=== PATIENT | male | born 1985 | race African-American/Black ===

== ENCOUNTER 2023-03-26 20:31 | Observation (INO) | payer BC, OTHER ==
[2023-03-26] MEDS ORDERED: SODIUM CHLORIDE 0.9% 500 ML INFUS.BAG IV ONE (23:07)
[2023-03-27] LABS: HEMATOCRIT 48.9 % (35.4-49); HEMOGLOBIN 16.9 GM/dL (11.7-16.9); MCH 27.9 pg (25.7-33.7); MCHC 34.5 g/dl (32.0-35.9); MEAN CELL VOLUME 80.7 fl (80-96); PLATELET COUNT 292 10^3/uL (134-434); RBC 6.06 M/mm3 (4.00-5.60); RDW 14.5 % (11.9-15.9); WHITE BLOOD COUNT 17.6 K/mm3 (4.0-10.0)
[2023-03-27 00:15] LABS: POTASSIUM 5.1 mmol/L (3.5-5.1)
[2023-03-27 00:17] LABS: CALCIUM 9.3 mg/dL (8.5-10.1)
[2023-03-27 00:18] LABS: ALBUMIN 4.6 g/dl (3.4-5.0); MAGNESIUM 1.9 mg/dL (1.8-2.4)
[2023-03-27 00:21] LABS: CREATININE 1.4 mg/dL (0.55-1.3)
[2023-03-27 00:23] LABS: TOT PROT 8.7 g/dl (6.4-8.2)
[2023-03-27] MEDS ORDERED: SODIUM CHLORIDE 0.9% 500 ML INFUS.BAG IV ONE ×2 (00:33→01:43)
[2023-03-27] MEDS ORDERED: ONDANSETRON 4 MG/2 ML VIAL IVPUSH ONE (00:42)
[2023-03-27] MEDS ORDERED: ONDANSETRON 4 MG/2 ML VIAL ONE ×2 (00:46→05:52)
[2023-03-27 01:31] LABS: ANISOCYTOSIS 2+; MACROCYTOSIS 0; OVALOCYTE 2+
[2023-03-27] MEDS ORDERED: ACETAMINOPHEN 1000 MG/100 ML BAG IVPB ONE (01:43)
[2023-03-27 01:47] LABS: URINE APPEARANCE CLEAR; URINE BILIRUBIN NEGATIVE (NEGATIVE); URINE COLOR YELLOW; URINE GLUCOSE (UA) NEGATIVE (NEGATIVE); URINE KETONE 1+ (NEGATIVE); URINE LEUK ESTERASE NEGATIVE (NEGATIVE); URINE NITRITE NEGATIVE (NEGATIVE); URINE PROTEIN TRACE (NEGATIVE); URINE UROBILINOGEN 0.2 mg/dL (0.2-1.0)
[2023-03-27] MEDS ORDERED: ACETAMINOPHEN INJECTION 100 ML IVPB ONE (02:47)
[2023-03-27] MEDS ORDERED: ACETAMINOPHEN 1000 MG/100 ML BAG IVPB PRN (04:08)
[2023-03-27] MEDS: SODIUM CHLORIDE 1,000 ML IV SCH ×2 (05:49→21:30)
[2023-03-27] MEDS: ONDANSETRON 4 MG/2 ML VIAL IVPB PRN ×2 (05:50→12:19)
[2023-03-27 07:32] LABS: BASO % 0.6 % (0-2.0); EOS % 0.6 % (0-4.5); HEMATOCRIT 44.6 % (35.4-49); HEMOGLOBIN 14.6 GM/dL (11.7-16.9); LYMPH % 7.4 % (8-40); MCH 27.2 pg (25.7-33.7); MCHC 32.8 g/dl (32.0-35.9); MEAN CELL VOLUME 82.9 fl (80-96); MONO % 7.1 % (3.8-10.2); NEUT % 84.3 % (42.8-82.8); PLATELET COUNT 248 10^3/uL (134-434); RBC 5.37 M/mm3 (4.00-5.60); RDW 14.8 % (11.9-15.9); WHITE BLOOD COUNT 11.5 K/mm3 (4.0-10.0)
[2023-03-27] MEDS: HEPARIN NA (PORCINE) 5,000 UNITS/ML 1ML VIAL SQ SCH ×3 (07:54→21:29)
[2023-03-27 08:26] LABS: POTASSIUM 4.1 mmol/L (3.5-5.1)
[2023-03-27] MEDS ORDERED: ONDANSETRON 4 MG TABLET PO ONE (08:36)
[2023-03-27] MEDS ORDERED: ONDANSETRON *ODT* 4 MG TABLET ONE (08:39)
[2023-03-27 08:51] LABS: BLOOD UREA NITROGEN 18.8 mg/dL (7-18); CREATININE 1.1 mg/dL (0.55-1.3); PHOSPHOROUS 3.6 mg/dL (2.5-4.9)
[2023-03-27 08:52] LABS: BILIRUBIN,TOTAL 0.9 mg/dL (0.2-1)
[2023-03-27 08:54] LABS: ALBUMIN 3.5 g/dl (3.4-5.0); CALCIUM 8.2 mg/dL (8.5-10.1); MAGNESIUM 1.8 mg/dL (1.8-2.4)
[2023-03-27 13:40] LABS: COCAINE, UR NEGATIVE (NEGATIVE); METHADONE, UR NEGATIVE (NEGATIVE); OPIATES, URI NEGATIVE (NEGATIVE); PHENCYCLIDINE,URINE NEGATIVE (NEGATIVE)
[2023-03-27 14:11] LABS: URINE AMPHETAMINES NEGATIVE (NEGATIVE); URINE BARBITURATES NEGATIVE (NEGATIVE); URINE BENZODIAZEPINES NEGATIVE (NEGATIVE)
[2023-03-27] MEDS: PROCHLORPERAZINE INJECTION 10 MG/2 ML VIAL IVPB PRN ×2 (16:29→21:29)
[2023-03-28] MEDS: HEPARIN NA (PORCINE) 5,000 UNITS/ML 1ML VIAL SQ SCH ×3 (05:23→21:23)
[2023-03-28] MEDS: SODIUM CHLORIDE 1,000 ML IV SCH (05:24)
[2023-03-28] MEDS ORDERED: ACETAMINOPHEN 1000 MG/100 ML BAG IVPB ONE (05:37)
[2023-03-28] MEDS: ACETAMINOPHEN 325 MG TABLET (FP) PO PRN (11:20)
[2023-03-28] MEDS: LACTATED RINGERS SOLUTION 1,000 ML/1,000 ML INFUS.BAG IV SCH ×2 (13:43→23:47)
[2023-03-28 15:17] VITALS: BMI 33.0
[2023-03-29] MEDS: HEPARIN NA (PORCINE) 5,000 UNITS/ML 1ML VIAL SQ SCH ×2 (05:30→13:47)
[2023-03-29] MEDS: SODIUM CHLORIDE 1,000 ML IV SCH (05:36)
[2023-03-29 08:18] LABS: BASO % 0.8 % (0-2.0); HEMATOCRIT 43.1 % (35.4-49); HEMOGLOBIN 14.9 GM/dL (11.7-16.9); LYMPH % 26.4 % (8-40); MCHC 34.5 g/dl (32.0-35.9); MEAN CELL VOLUME 81.2 fl (80-96); MEAN PLT VOLUME 8.1 fl (7.5-11.1); MONO % 8.3 % (3.8-10.2); NEUT % 63.5 % (42.8-82.8); PLATELET COUNT 226 10^3/uL (134-434); RBC 5.31 M/mm3 (4.00-5.60); RDW 13.8 % (11.9-15.9)
[2023-03-29 08:37] LABS: POTASSIUM 4.2 mmol/L (3.5-5.1)
[2023-03-29 08:44] LABS: ALBUMIN 3.6 g/dl (3.4-5.0)
[2023-03-29 08:47] LABS: BLOOD UREA NITROGEN 7.3 mg/dL (7-18); CALCIUM 9.2 mg/dL (8.5-10.1)
[2023-03-29 08:52] LABS: TOT PROT 7.2 g/dl (6.4-8.2)
[2023-03-29 08:53] LABS: BILIRUBIN,TOTAL 0.9 mg/dL (0.2-1)
[2023-03-29] MEDS: ACETAMINOPHEN 325 MG TABLET (FP) PO PRN (10:13)
[2023-03-29] MEDS: LACTATED RINGERS SOLUTION 1,000 ML/1,000 ML INFUS.BAG IV SCH (12:31)
[2023-03-29 13:06] VITALS: RESP 18
[2023-03-29 14:38] VITALS: BP 141/89; PULSE 52; TEMP 98.9
== END 2023-03-29 18:00 | disposition home or self-care (01) ==
LOC: JER 20:31 → JERBED 03-27 02:32 → J7W 03-27 11:52
PROVIDERS: ADMIT Internal Medicine
PROC: 3E033NZ Introduction of Analgesics, Hypnotics, Sedatives into Peripheral Vein, Percutaneous Approach (ICD-10-PCS; principal; 2023-03-27)
PROC: 3E023GC Introduction of Other Therapeutic Substance into Muscle, Percutaneous Approach (ICD-10-PCS; 2023-03-27)
PROC: 3E0337Z Introduction of Electrolytic and Water Balance Substance into Peripheral Vein, Percutaneous Approach (ICD-10-PCS; 2023-03-27)
PROC: 3E033GC Introduction of Other Therapeutic Substance into Peripheral Vein, Percutaneous Approach (ICD-10-PCS; 2023-03-27)
DX: N17.9 Acute kidney failure, unspecified (principal); M62.82 Rhabdomyolysis; Z29.8 Encounter for other specified prophylactic measures; R11.2 Nausea with vomiting, unspecified
CPT/HCPCS: 36415; 80053; 80307; 81003; 82550; 82553; 83735; 84100; 85025; 93005; 93010; 97116-GP; 97161-GP; 99285-25; G0378; J1644